=== PATIENT | male | born 1970 | race African-American/Black ===

== ENCOUNTER 2016-09-18 11:43 | Emergency (ER) | payer OTHER ==
[~2016-09-18] VITALS: Ht 172.7 cm; Wt 78.1 kg
[~2016-09-18 11:43] MED LIST: FLEXERIL10 MG PO; PEN-VEE K,VEET500 MG PO; PERCOCET 5/31 TABLET PO
[2016-09-18] MEDS ORDERED: MUCINEX D ER T1 EACH PO (12:05)
[2016-09-18] MEDS ORDERED: LEVAQUIN500 MG PO (12:05)
[2016-09-18] MEDS ORDERED: FLONASE16 G1 BOTH NARES (12:05)
[2016-09-18 12:13] VITALS: BP 126/95
== END 2016-09-18 12:15 | disposition home or self-care (01) ==
LOC: EME 11:43
DX: J01.90 Acute sinusitis, unspecified (principal); R05 Cough
CPT/HCPCS: 99281; 99284